=== PATIENT | female | born 1980 | race Caucasian/White ===

== ENCOUNTER → 2018-12-29 10:09 | Outpatient (CLI) | payer OTHER, SELFPAY ==
[2018-12-29 11:06] LABS: Appearance Urine UA CLEAR; Bilirubin Urine UA NEGATIVE (NEGATIVE); Color Urine UA YELLOW; Glucose Urine UA NEGATIVE (Negative); Ketones Urine UA NEGATIVE (NEGATIVE); Leukocyte Esterase Urine UA NEGATIVE (NEGATIVE); Nitrite Urine UA NEGATIVE (Negative); Occult Blood Urine UA TRACE-LYSED (Negative); Protein Urine UA NEGATIVE (Negative); Specific Gravity Urine UA 1.015 (1.000-1.035); Urobilinogen Urine UA 0.2 E.U./dL (0.2)
[2018-12-29 11:16] LABS: Hematocrit 37.8 % (36-46); Mean Corpuscular HGB Conc 34.4 % (30-36); Mean Corpuscular Hemoglobin 29.7 PG (26-34); Mean Corpuscular Volume 86.5 fL (80-100); Platelet Count 280 X10^3/uL (150-400); Red Blood Cell Count 4.37 X10^6/uL (4.0-5.2); Red Cell Distribution Width 13.7 % (11.6-14.8); White Blood Cell Count 8.1 X10^3/uL (4.5-11.0)
[2018-12-29 11:39] LABS: Alanine Aminotransferase 19 IU/L (9-52); Albumin 3.8 g/dL (3.5-5.0); Albumin Globulin Ratio 1.2 (1.0-2.8); Alkaline Phosphatase 76 U/L (38-126); Aspartate Aminotransferase 20 IU/L (14-36); BUN Creatinine Ratio 18.6 (6-22); Bilirubin Total 0.5 mg/dL (0.2-1.3); Blood Urea Nitrogen 13 mg/dL (7-17); Calcium 9.5 mg/dL (8.4-10.2); Carbon Dioxide 27 mmol/L (22-32); Chloride 102 mmol/L (98-107); Cholesterol 185 mg/dL (140-199); Estimated Glomerular Filt Rate > 60.0 mL/min (>60); Globulin 3.2 g/dL (1.7-4.1); Glucose 92 mg/dL (70-100); HDL Cholesterol 40 mg/dL (40-60); HEMOLYSIS < 15 (0-50); LDL Cholesterol Calculated 123 mg/dL (<100); Potassium 5.3 mmol/L (3.4-5.1); Sodium 137 mmol/L (137-145); Triglycerides 111 mg/dL (35-150)
[2018-12-29 11:55] LABS: Neutrophils Absolute Manual 4698 /uL (3000-5900); RBC Morphology Normal Morphology; Total Cells Counted 100
[2018-12-29 12:10] LABS: Thyroid Stimulating Hormone 2.06 uIU/mL (0.47-4.68)
== END ==
PROVIDERS: PCP Family Medicine; Visit Provider Family Medicine
DX: E66.9 Obesity, unspecified (principal); I10 Essential (primary) hypertension
CPT/HCPCS: 36415; 80053; 80061; 81003; 84443; 85025

== ENCOUNTER → 2019-01-21 10:38 | Outpatient (CLI) | payer OTHER, SELFPAY ==
--- NOTE | 2019-01-21 10:39 | DI.MG.S_ITS ---
BILATERAL DIGITAL SCREENING MAMMOGRAM 3D/2D WITH CAD: 01/21/2019 CLINICAL: Routine screening. Baseline exam. Family history of breast cancer. No prior exams were available for comparison. The tissue of both breasts is heterogeneously dense. This may lower the sensitivity of mammography. Current study was also evaluated with a Computer Aided Detection (CAD) system. There is a possible an irregular asymmetry with grouped coarse calcifications in the right breast posterior depth superior region seen on the mediolateral oblique view only. There is a 0.6 cm focal asymmetry with a circumscribed margin and grouped coarse calcifications in the left breast at 7 o'clock middle depth. No other significant masses or calcifications are seen in either breast. IMPRESSION: INCOMPLETE: NEEDS ADDITIONAL IMAGING EVALUATION The possible irregular asymmetry in the right breast posterior depth superior region seen on the mediolateral oblique view only is indeterminate. Spot magnification views as well as additional views with possible ultrasound are recommended. The 0.6 cm focal asymmetry in the left breast at 7 o'clock middle depth is indeterminate. Spot magnification views as well as additional views with possible ultrasound are recommended. This exam was interpreted at Station ID: [id number]. NOTE: For mammograms, a report in lay terms will be sent to the patient. Approximately 15% of breast malignancies will not be visualized mammographically. In the management of a palpable breast mass, a negative mammogram must not discourage biopsy of a clinically suspicious lesion. Electronically Signed By: Stephan carolina/silverio:01/23/2019 08:12:15 letter sent: Additional Imaging Needed ACR BI-RADS Category 0: Incomplete [id number]
[2019-01-21 13:25] LABS: Alanine Aminotransferase 32 IU/L (9-52); Albumin 3.9 g/dL (3.5-5.0); Albumin Globulin Ratio 1.3 (1.0-2.8); Alkaline Phosphatase 76 U/L (38-126); Aspartate Aminotransferase 21 IU/L (14-36); BUN Creatinine Ratio 18.6 (6-22); Bilirubin Total 0.6 mg/dL (0.2-1.3); Blood Urea Nitrogen 13 mg/dL (7-17); Carbon Dioxide 26 mmol/L (22-32); Chloride 103 mmol/L (98-107); Cholesterol 158 mg/dL (140-199); Estimated Glomerular Filt Rate > 60.0 mL/min (>60); Glucose 82 mg/dL (70-100); HDL Cholesterol 40 mg/dL (40-60); HEMOLYSIS < 15 (0-50); LDL Cholesterol Calculated 102 mg/dL (<100); Potassium 4.5 mmol/L (3.4-5.1); Sodium 139 mmol/L (137-145); Total Protein 6.9 g/dL (6.3-8.2); Triglycerides 82 mg/dL (35-150)
== END ==
PROVIDERS: PCP Family Medicine; Visit Provider Family Medicine
DX: Z12.31 Encounter for screening mammogram for malignant neoplasm of breast (principal); Z80.3 Family history of malignant neoplasm of breast; I10 Essential (primary) hypertension; E78.5 Hyperlipidemia, unspecified
CPT/HCPCS: 36415; 77063; 77067; 80053; 80061; 93005; 93010

== ENCOUNTER → 2019-02-08 15:12 | Outpatient (CLI) | payer OTHER, SELFPAY ==
--- NOTE | 2019-02-08 15:13 | DI.US.S_ITS ---
LIMITED ULTRASOUND OF RIGHT BREAST AND AXILLA: 02/08/2019 CLINICAL: Additional evaluation requested from prior study. Comparison is made to exams dated: 01/21/2019 mammogram and 02/08/2019 mammogram - [facility]. Color flow and real-time ultrasound of the right breast upper outer quadrant and axilla regions were performed. There are multiple right axillary lymph nodes demonstrating increased prominence and heterogenously increased echogenicity of the hilar fat, but with no significant cortical thickening. There is increased hilar vascularity of the nodes on ultrasound. IMPRESSION: SUSPICIOUS OF MALIGNANCY Multiple right axillary lymph nodes demonstrating prominent increased echogenicity of the hilar fat with increased hilar vascularity, but with no significant cortical thickening. Concurrent targeted ultrasound of the left axilla demonstrates similar findings, suggesting a possibly systemic lymphatic process. An ultrasound guided biopsy is recommended. Clinical correlation recommended as well. These results and recommendations were discussed with the patient at the time of the exam by the [facility] Radiologist Dr. Vinnie Worthy in person. This exam was interpreted at Station ID: [id number]. Electronically Signed By: Juanpablo Perez M.D. ecl/:02/08/2019 17:19:35 letter sent: Biopsy Required Ultrasound BI-RADS: 4a Low suspicion for malignancy
--- NOTE | 2019-02-08 15:13 | DI.US.S_ITS ---
LIMITED ULTRASOUND OF LEFT BREAST AND AXILLA: 02/08/2019 CLINICAL: Additional evaluation requested from prior study. Comparison is made to exams dated: 02/08/2019 mammogram, 01/21/2019 mammogram, and 02/08/2019 ultrasound - [facility]. Color flow and real-time ultrasound of the left breast lower inner quadrant and axilla regions were performed. Valdes scale images of the real-time examination were reviewed. There are multiple left axillary lymph nodes demonstrating increased prominence and heterogenously increased echogenicity of the hilar fat, but with no significant cortical thickening. There is increased hilar vascularity of the nodes on ultrasound. There is a 1.0 x 0.8 x 0.5 oval indistinct hypoechoic mass in the left breast 7:30 posiiton 6 cm from the nipple with internal calcifications and no vascularity on Doppler ultrasound. This correlates with mammography findings. IMPRESSION: SUSPICIOUS OF MALIGNANCY 1) 1.0 x 0.8 x 0.5 oval indistinct hypoechoic mass in the left breast 7:30 posiiton 6 cm from the nipple. An ultrasound guided biopsy is recommended. 2) Multiple left axillary lymph nodes demonstrating prominent increased echogenicity of the hilar fat with increased hilar vascularity, but with no significant cortical thickening. Concurrent targeted ultrasound of the right axilla demonstrates similar findings, suggesting a possibly systemic lymphatic process. An ultrasound guided biopsy of the right axillary lymph nodes has been recommended as the findings appear more significant in the right axilla; please see concurrent right axillary ultrasound report for further details. These results and recommendations were discussed with the patient at the time of the exam by the [facility] Radiologist Dr. Vinnie Worthy in person. This exam was interpreted at Station ID: [id number]. Electronically Signed By: Juanpablo Perez M.D. ecl/:02/08/2019 17:19:07 letter sent: Biopsy Required Ultrasound BI-RADS: 4a Low suspicion for malignancy
--- NOTE | 2019-02-08 15:13 | DI.MG.S_ITS ---
BILATERAL DIGITAL DIAGNOSTIC MAMMOGRAM 3D/2D: 02/08/2019 CLINICAL: Additional evaluation requested from prior study. Comparison is made to exam dated: 01/21/2019 [facility]. The tissue of both breasts is heterogeneously dense. This may lower the sensitivity of mammography. Previously identified irregular asymmetry with grouped coarse calcifications in the right breast posterior depth superior region seen on the mediolateral oblique view only on comparison mammogram of 01/21/19 persists on magnification views and localizes to the right axilla. These calcifications persist despite multiple attempts at cleaning the axilla by the patient and mammographic technologist. This may represent calcifications of the skin or within an axillary lymph node. There is an asymmetry in the superior right breast at middle depth seen only on RLM views which resolves with spot compression and tomosynthesis views, consistent with fibroglandular tissue. Previously identified 0.6 cm focal asymmetry with a circumscribed margin and grouped coarse calcifications in the left breast near 7 o'clock middle depth persists with additional views. IMPRESSION: INCOMPLETE: NEEDS ADDITIONAL IMAGING EVALUATION Previously identified irregular asymmetry with grouped coarse calcifications in the right breast posterior depth superior region seen on the mediolateral oblique view only on comparison mammogram of 01/21/19 persists on magnification views and localizes to the right axilla. This may represent calcifications within the skin or an axillary lymph node, possibly secondary to granulomatous disease. A targeted ultrasound is recommended for further evaluation. Previously identified 0.6 cm focal asymmetry with a circumscribed margin and grouped coarse calcifications in the left breast near 7 o'clock middle depth persists with additional views. A targeted ultrasound is recommended for further evaluation. This exam was interpreted at Station ID: [id number]. NOTE: For mammograms, a report in lay terms will be sent to the patient. Approximately 15% of breast malignancies will not be visualized mammographically. In the management of a palpable breast mass, a negative mammogram must not discourage biopsy of a clinically suspicious lesion. Electronically Signed By: Juanpablo Perez M.D. ecl/:02/08/2019 17:21:33 ACR BI-RADS Category 0: Incomplete [id number]
== END ==
PROVIDERS: PCP Family Medicine; Visit Provider Family Medicine
DX: R92.8 Other abnormal and inconclusive findings on diagnostic imaging of breast (principal); R92.1 Mammographic calcification found on diagnostic imaging of breast; R59.0 Localized enlarged lymph nodes; N63.24 Unspecified lump in the left breast, lower inner quadrant; N64.89 Other specified disorders of breast
CPT/HCPCS: 76642; 77066; G0279

== ENCOUNTER → 2019-02-21 13:03 | Outpatient (CLI) | payer OTHER, SELFPAY ==
--- NOTE | 2019-02-21 | DI.US.S_ITS ---
ULTRASOUND GUIDED BIOPSY RIGHT BREAST USING VACUUM DEVICE WITH POST ULTRASOUND IMAGIN02/21/2019 CLINICAL: Right axillary node biopsy. PATIENT CONSENT: Risks (minor bleeding, infection, vasovagal reaction and repeat procedure), benefits and alternatives were explained to the patient and written informed consent was obtained. Correlation is made to exams dated: 02/08/2019 ultrasound, 02/08/2019 mammogram, and 01/21/2019 mammogram - [facility]. An ultrasound guided biopsy using real-time ultrasound was performed for the lymph node located in the right axilla. This was described on the previous ultrasound report. The skin was prepped in the usual manner. Local anesthetic was administered to the access site. The abnormality was approached from the caudocranial aspect. An 18 gauge biopsy needle was placed adjacent to the abnormality under ultrasound guidance. Once the needle was documented to be in the correct location, three specimens were obtained using the Allih[employer] biopsy system. Post procedure ultrasound imaging demonstrates the clip at the targeted area. The specimens were sent to the laboratory for pathological analysis. IMPRESSION: ULTRASOUND GUIDED BIOPSY BENIGN Ultrasound guided biopsy of the lymph node in the right axilla was successful. Pathology demonstrates a benign lymph node and is concordant with ultrasound findings. Recommend return to screening mammography. This exam was interpreted at Station ID: [id number]. Rajat maldonado,teresa/:02/28/2019 17:09:01
--- NOTE | 2019-02-21 | DI.MG.S_ITS ---
UNILATERAL LEFT DIGITAL DIAGNOSTIC MAMMOGRAM POST-NEEDLE BIOPSY: 02/21/2019 CLINICAL: Left breast mass. Comparison is made to exams dated: 02/21/2019 ultrasound biopsy, 02/08/2019 ultrasound, 02/08/2019 mammogram, and 01/21/2019 mammogram - [facility]. The tissue of left breast is heterogeneously dense. This may lower the sensitivity of mammography. There is a bipsy clip in the left breast at the biopsy site. IMPRESSION: The bipsy clip is at the biopsy site. This exam was interpreted at Station ID: [id number]. NOTE: For mammograms, a report in lay terms will be sent to the patient. Approximately 15% of breast malignancies will not be visualized mammographically. In the management of a palpable breast mass, a negative mammogram must not discourage biopsy of a clinically suspicious lesion. Electronically Signed By: Rajat Shepherd M.D. fx/:02/23/2019 10:59:43 ACR BI-RADS Category n/a
--- NOTE | 2019-02-21 | PATH_ITS ---
[facility] Accession Number: [id number] . 01 Material submitted: . PART A: breast - LEFT BREAST PART B: lymph node - RIGHT AXILLARY LYMPH NODE . 01 Clinical history: . ABNORMAL MAMMOGRAM A: MASS 7:30 6 CM FN . 01 Diagnosis: A. Left Breast, Mass at 7:30 o'clock, 6 cm from Nipple, Biopsy: Breast parenchyma with fibrocystic change including cystic apocrine metaplasia and focal usual ductal hyperplasia. Rare calcium oxalate-type microcalcifications are present. Negative for atypia, carcinoma in situ, and invasive malignancy. . B. Right Axillary Lymph Node, Biopsy: Lymph node tissue, negative for malignancy. MRV 02/24/2019 1152 Local . 01 Electronically signed: . Meagan Santos MD, Pathologist NPI- [id number] . 01 Gross description: . Received two formalin-filled containers, both labeled with the patient's name: A. In a container labeled LT brst, sample is received, sample loose in container and consists of four yellow-brooks, cylindrical-shaped portions of tissue with an average diameter of 0.3 cm and range in length from 0.8 cm to 1.4 cm. The specimen is entirely submitted in cassette A. B. In a container labeled RT ax are two 0.2 cm in diameter, light denny, fragmenting, cylindrical-shaped portions of tissue that range in length from 1.2 cm to 1.8 cm. The specimen is entirely submitted in cassette B. Collection date: 02/21/2019. Collection time: Part A - 1:50 p.m.; Part B - 2:15 p.m. Total fixation time: Approximately 8 hours. (DC:[id number]) /PETTY 02/24/2019 1152 Local . 01 Microscopic: . Deeper levels are examined on blocks A and B. A. Rare calcium oxalate crystals, seen with polarized microscopy, are associated with benign apocrine cysts. B. Pigment laden macrophages consistent with tatoo is present within the lymph node tissue. . 01 Pathologist provided ICD-10: N63.0 . 01 CPT . 025568, 113682 [facility]formed at: [facility] [address], [place], [place] [id number] MD Jules Pedroza MD Phone: [phone]
--- NOTE | 2019-02-21 13:04 | DI.US.S_ITS ---
ULTRASOUND GUIDED BIOPSY LEFT BREAST USING VACUUM DEVICE WITH POST MAMMOGRAPHIC AND ULTRASOUND IMAGIN02/21/2019 CLINICAL: Left breast mass. PATIENT CONSENT: Risks (minor bleeding, infection, vasovagal reaction and repeat procedure), benefits and alternatives were explained to the patient and written informed consent was obtained. Correlation is made to exams dated: 02/08/2019 ultrasound, 02/08/2019 mammogram, and 01/21/2019 mammogram - [facility]. An ultrasound guided biopsy using real-time ultrasound was performed for the oval mass located in the left breast at 7:30 o'clock posterior depth. This was described on the previous ultrasound report. The skin was prepped in the usual manner. Local anesthetic was administered to the access site. The abnormality was approached from the medial aspect. A 13 gauge biopsy needle was placed adjacent to the abnormality under ultrasound guidance. Once the needle was documented to be in the correct location, five specimens were obtained using the Mammotome biopsy system. Post procedure mammographic and ultrasound imaging demonstrates the clip at the targeted area. The specimens were sent to the laboratory for pathological analysis. IMPRESSION: ULTRASOUND GUIDED BIOPSY BENIGN Ultrasound guided biopsy of the mass in the left breast posterior depth was successful. Pathology indicates fibrocystic changes, concordant with mammography and ultrasound findings. Return to screening mammography is recommended. This exam was interpreted at Station ID: [id number]. teresa Peñaloza M.D., M.D./:02/28/2019 17:07:33
== END ==
PROVIDERS: PCP Family Medicine; Visit Provider Family Medicine
DX: N60.82 Other benign mammary dysplasias of left breast (principal); N60.12 Diffuse cystic mastopathy of left breast
CPT/HCPCS: 19083; 38505; 76942; 77065

== ENCOUNTER → 2019-11-28 17:08 | Outpatient (CLI) | payer OTHER, SELFPAY ==
--- NOTE | 2019-11-28 17:16 | DI.RAD.S_ITS ---
PROCEDURE: XR KNEE RT 3V INDICATIONS: right ankle pain TECHNIQUE: 3 views of the knee were acquired. COMPARISON: None. FINDINGS: Bones: No fractures or dislocations. There is evidence of prior fracture fixation at the tibial plateau with a lateral fixation plate and transverse cancellous screws, showing no evidence of device loosening or disruption. No suspicious bony lesions. Moderate osteoarthritis at all 3 compartments Soft tissues: No joint effusion. No suspicious soft tissue calcifications. IMPRESSION: Prior tibial plateau fracture fixation, moderate osteoarthritis at the 3 compartments of the right knee. Dictated by: Tino Mcadams M.D. on 11/29/2019 at 10:07 Approved by: Tino Mcadams M.D. on 11/29/2019 at 10:09
--- NOTE | 2019-11-28 17:16 | DI.RAD.S_ITS ---
PROCEDURE: XR ANKLE RT MIN 3V INDICATIONS: right ankle pain TECHNIQUE: 3 views of the ankle were acquired. COMPARISON: None. FINDINGS: Bones: No fractures or dislocations. Ankle mortise is normally aligned. No suspicious bony lesions. Prior fracture fixation at the lateral aspect of the distal fibia and also at the medial malleolus Soft tissues: No tibiotalar joint effusion. Achilles tendon appears normal. IMPRESSION: . Prior fracture fixation, no sign of device loosening or disruption, no new trauma found. Dictated by: Tino Mcadams M.D. on 11/29/2019 at 10:06 Approved by: Tino Mcadams M.D. on 11/29/2019 at 10:07
== END ==
PROVIDERS: PCP Registered Nurse; Referring Provider Registered Nurse; Visit Provider Registered Nurse
DX: M25.561 Pain in right knee (principal); M25.571 Pain in right ankle and joints of right foot; M17.11 Unilateral primary osteoarthritis, right knee
CPT/HCPCS: 73562; 73610

== ENCOUNTER → 2020-03-25 14:46 | Outpatient (CLI) | payer OTHER, SELFPAY ==
--- NOTE | 2020-03-25 14:48 | DI.RAD.S_ITS ---
PROCEDURE: XR CHEST 2V INDICATIONS: cough TECHNIQUE: 2 views of the chest were acquired. COMPARISON: None. FINDINGS: Surgical changes and devices: None. Lungs and pleura: Lungs are clear. No pleural effusions or pneumothorax. Mediastinum: Mediastinal contours are normal. Heart size is normal. Bones and chest wall: No suspicious bony abnormalities. Soft tissues appear unremarkable. IMPRESSION: Clear lungs, without focal infiltrates. If there is clinical concern for a developing pulmonary process, a short-term followup chest series (with PA and lateral views, performed in deep inspiration) is suggested for further evaluation. Dictated by: Kip De La Cruz M.D. on 03/25/2020 at 15:05 Approved by: Kip De La Cruz M.D. on 03/25/2020 at 15:05
[2020-03-25 15:05] LABS: Add Manual Diff / Slide Review NO; Basophils Absolute Auto 0 /uL (0-100); Basophils Percent Auto 0.5 % (0-2); Eosinophils Absolute Auto 100 /uL (0-450); Eosinophils Percent Auto 1.1 % (2-4); Hemoglobin 12.3 g/dL (12.0-16.0); Lymphocytes Absolute Auto 2800 /uL (1100-4500); Lymphocytes Percent Auto 33.3 % (25-40); Mean Corpuscular HGB Conc 33.2 % (30-36); Mean Corpuscular Hemoglobin 29.2 PG (26-34); Mean Corpuscular Volume 88.2 fL (80-100); Monocytes Absolute Auto 600 /uL (0-900); Monocytes Percent Auto 7.2 % (3-14); Neutrophils Absolute Auto 4800 /uL (1500-7000); Neutrophils Percent Auto 57.9 % (50-75); Platelet Count 288 X10^3/uL (150-400); Red Cell Distribution Width 13.5 % (11.6-14.8); White Blood Cell Count 8.3 X10^3/uL (4.5-11.0)
[2020-03-25 15:24] LABS: Alanine Aminotransferase 20 IU/L (<35); Albumin 3.8 g/dL (3.5-5.0); Albumin Globulin Ratio 1.1 (1.0-2.8); Alkaline Phosphatase 76 U/L (38-126); Aspartate Aminotransferase 18 IU/L (14-36); BUN Creatinine Ratio 22.7 (6-22); Bilirubin Total 0.3 mg/dL (0.2-1.3); Blood Urea Nitrogen 15 mg/dL (7-17); Calcium 8.9 mg/dL (8.4-10.2); Carbon Dioxide 27 mmol/L (22-32); Chloride 106 mmol/L (98-107); Estimated Glomerular Filt Rate > 60.0 mL/min (>60); Globulin 3.4 g/dL (1.7-4.1); Glucose 107 mg/dL (70-100); HEMOLYSIS < 15 (0-50); Potassium 4.1 mmol/L (3.4-5.1); Sodium 137 mmol/L (137-145); Total Protein 7.2 g/dL (6.3-8.2)
== END ==
PROVIDERS: PCP Registered Nurse; Referring Provider Registered Nurse; Visit Provider Registered Nurse
DX: J98.8 Other specified respiratory disorders (principal); R05 Cough
CPT/HCPCS: 36415; 71046; 80053; 85025

== ENCOUNTER → 2020-05-10 13:54 | Outpatient (CLI) | payer OTHER, SELFPAY ==
[2020-05-10 16:24] LABS: Add Manual Diff / Slide Review NO; Basophils Absolute Auto 0 /uL (0-100); Basophils Percent Auto 0.2 % (0-2); Eosinophils Absolute Auto 100 /uL (0-450); Hematocrit 39.2 % (36-46); Hemoglobin 12.8 g/dL (12.0-16.0); Lymphocytes Absolute Auto 2700 /uL (1100-4500); Lymphocytes Percent Auto 32.4 % (25-40); Mean Corpuscular HGB Conc 32.6 % (30-36); Mean Corpuscular Hemoglobin 28.9 PG (26-34); Mean Corpuscular Volume 88.7 fL (80-100); Monocytes Absolute Auto 500 /uL (0-900); Monocytes Percent Auto 6.3 % (3-14); Neutrophils Absolute Auto 4900 /uL (1500-7000); Neutrophils Percent Auto 60.1 % (50-75); Platelet Count 279 X10^3/uL (150-400); Red Blood Cell Count 4.42 X10^6/uL (4.0-5.2); Red Cell Distribution Width 13.2 % (11.6-14.8); White Blood Cell Count 8.2 X10^3/uL (4.5-11.0)
[2020-05-10 16:39] LABS: Alanine Aminotransferase 29 IU/L (<35); Albumin 4.2 g/dL (3.5-5.0); Albumin Globulin Ratio 1.4 (1.0-2.8); Alkaline Phosphatase 71 U/L (38-126); Aspartate Aminotransferase 23 IU/L (14-36); BUN Creatinine Ratio 18.2 (6-22); Bilirubin Total 0.2 mg/dL (0.2-1.3); Blood Urea Nitrogen 14 mg/dL (7-17); C-Reactive Protein Quant 1.4 mg/dL (<1.0); Calcium 9.3 mg/dL (8.4-10.2); Carbon Dioxide 28 mmol/L (22-32); Chloride 102 mmol/L (98-107); Estimated Glomerular Filt Rate > 60.0 mL/min (>60); Globulin 3.1 g/dL (1.7-4.1); Glucose 94 mg/dL (70-100); HEMOLYSIS < 15 (0-50); Potassium 4.2 mmol/L (3.4-5.1); Sodium 136 mmol/L (137-145); Total Protein 7.3 g/dL (6.3-8.2)
[2020-05-10 16:45] LABS: Erythrocyte Sedimentation Rate 18 MM/HR (0-20)
== END ==
PROVIDERS: PCP Registered Nurse; Referring Provider Registered Nurse; Visit Provider Registered Nurse
DX: M62.838 Other muscle spasm (principal)
CPT/HCPCS: 36415; 80053; 83735; 85025; 85651; 86140

== ENCOUNTER → 2020-08-14 12:08 | Outpatient (CLI) | payer OTHER, SELFPAY ==
--- NOTE | 2020-08-14 12:09 | DI.US.S_ITS ---
PROCEDURE: US PERIPH VENOUS LOW EXTREM RT INDICATIONS: PAIN TECHNIQUE: Real-time imaging, as well as color and pulse Doppler interrogation, were performed of the lower extremity deep veins from the inguinal ligament to the popliteal fossa. COMPARISON: None. FINDINGS: The common femoral, femoral and popliteal veins are normally compressible, and free of intraluminal thrombus. Color and pulse Doppler demonstrate normal phasic intraluminal flow. There is normal augmentation response to distal compression maneuver. This study is limited by body habitus. IMPRESSION: Negative for deep venous thrombosis. Dictated by: Kip De La Cruz M.D. on 08/14/2020 at 11:57 Approved by: Kip De La Cruz M.D. on 08/14/2020 at 11:57
== END ==
PROVIDERS: PCP Registered Nurse; Referring Provider Registered Nurse; Visit Provider Registered Nurse
DX: M79.604 Pain in right leg (principal)
CPT/HCPCS: 93971

== ENCOUNTER → 2021-06-10 09:53 | Outpatient (CLI) | payer OTHER, SELFPAY ==
--- NOTE | 2021-06-10 10:18 | DI.RAD.S_ITS ---
PROCEDURE: XR CHEST 2V INDICATIONS: eval persistent cough/SOB, pls R/O pneumonia TECHNIQUE: 2 views of the chest were acquired. COMPARISON: [facility], CR, XR CHEST 2V, 03/25/2020, 15:01. FINDINGS: Surgical changes and devices: None. Lungs and pleura: Lungs are clear. No pleural effusions or pneumothorax. Mediastinum: Mediastinal contours are normal. Heart size is normal. Bones and chest wall: No suspicious bony abnormalities. Soft tissues appear unremarkable. IMPRESSION: No acute cardiopulmonary process demonstrated radiographically. Dictated by: Randall Kaplan M.D. on 06/10/2021 at 10:42 Approved by: Randall Kaplan M.D. on 06/10/2021 at 10:46
[2021-06-10 11:01] LABS: Influenza A - CEPHEID Flu A NEGATIVE (NEGATIVE); Influenza B - CEPHEID Flu B NEGATIVE (NEGATIVE)
[2021-06-10 11:07] LABS: COVID-19 CEPHEID PCR (VTM/NP) Negative (Negative)
== END ==
PROVIDERS: PCP Registered Nurse; Referring Provider Registered Nurse Diabetes Educator; Visit Provider Registered Nurse Diabetes Educator
DX: R05.9 Cough, unspecified (principal); Z20.822 Contact with and (suspected) exposure to COVID-19
CPT/HCPCS: 0240U; 71046

== ENCOUNTER → 2021-07-03 10:31 | Outpatient (CLI) | payer OTHER, SELFPAY ==
--- NOTE | 2021-07-03 10:32 | DI.RAD.S_ITS ---
PROCEDURE: XR CHEST 2V INDICATIONS: Shortness of breath, cough TECHNIQUE: 2 views of the chest were acquired. COMPARISON: [facility], CR, XR CHEST 2V, 06/10/2021, 10:08. FINDINGS: Surgical changes and devices: None. Lungs and pleura: Lungs are clear. No pleural effusions or pneumothorax. Mediastinum: Mediastinal contours are normal. Heart size is normal. Bones and chest wall: No suspicious bony abnormalities. Soft tissues appear unremarkable. IMPRESSION: No acute cardiopulmonary process demonstrated radiographically. Dictated by: Randall Kaplan M.D. on 07/03/2021 at 11:09 Approved by: Randall Kaplan M.D. on 07/03/2021 at 11:09
== END ==
PROVIDERS: PCP Registered Nurse; Referring Provider Registered Nurse; Visit Provider Registered Nurse
DX: J98.8 Other specified respiratory disorders (principal); R05.9 Cough, unspecified
CPT/HCPCS: 71046

== ENCOUNTER → 2021-07-09 15:23 | Outpatient (CLI) | payer OTHER, SELFPAY ==
--- NOTE | 2021-07-22 08:00 | PM.CARDMON.1 ---
[employer] Machine Operator Report Referral & Results Date Patient Seen: 07/09/21 Requesting provider: Nano Shelby Indication: Palpitations Duration of monitoring (days): 5 Diary information: There was 1 patient diary entry there was associated with sinus rhythm and simple PVCs Data: Minimum heart rate identified was 45 beats per minute at 01:27 on 07/13/2021 Maximum sinus heart rate was 143 beats per minute at 11:23 on 07/14/2021 Maximum overall heart rate was 182 beats per minute at 01:20 on 07/12/2021 during a 6 beat run of SVT Less than 1% of identified beats were supraventricular ectopic in origin Approximately 9% of identified beats were ventricular ectopic in origin which would classify them as frequent, this included a 8 minute 43 second run of ventricular bigeminy and a 57.7 second run of ventricular trigeminy which were respectively the longest runs There were 6 runs of SVT the longest lasting 9.8 seconds at a rate of 131 beats per minute the fastest being the 6 beat run above Impression: 5 day pilot can router demonstrating frequent PVCs as a very possible source of patient's reported symptoms of palpitations. No serious dysrhythmias identified on this study beyond the PVCs Clinical correlation suggested
== END ==
PROVIDERS: PCP Registered Nurse; Referring Provider Family Medicine; Visit Provider Family Medicine
DX: R00.2 Palpitations (principal)
CPT/HCPCS: 93242; 93244

== ENCOUNTER → 2021-07-18 14:26 | Outpatient (CLI) | payer OTHER, SELFPAY ==
--- NOTE | 2021-07-18 14:26 | DI.CT.S_ITS ---
PROCEDURE: CT ABDOMEN PELVIS W CON INDICATIONS: abdominal pain TECHNIQUE: After the administration of oral and IV contrast, axial sections were acquired from the lung bases to the pubic symphysis. Coronal and sagittal reformats were performed. For radiation dose reduction, the following was used: automated exposure control, adjustment of mA and/or kV according to patient size. COMPARISON: None. FINDINGS: Image quality: Excellent. Lung bases: Unremarkable. Heart: No significant findings. ABDOMEN: Liver: Hepatomegaly and mild hepatic steatosis. Gallbladder: Surgically absent. Biliary ducts: Mild extrahepatic biliary dilatation, appropriate caliber post cholecystectomy. Pancreas: Normal. Spleen: Normal size. Adrenal Glands: Unremarkable. Kidneys and Ureters: Symmetric renal enhancement. No hydronephrosis or hydroureter. No perinephric inflammation. Stomach and Bowel: Stomach and small bowel are normal. A normal appendix is seen. There is mild diverticulosis of the descending colon and thickening of the left lower quadrant descending/sigmoid colon region. No maritza pericolonic inflammation or extraluminal gas. Peritoneum: No abnormal intraperitoneal fluid. No free air. Ventral Wall: Tiny fat containing umbilical hernia. Abdominal Nodes: No retroperitoneal or mesenteric adenopathy by size criteria. Vessels: Aorta and inferior vena cava are normal in size. PELVIS: Pelvic Organs: The uterus is anteverted. Normal ovarian tissue. Bladder: Normal. Pelvic Nodes: No enlarged lymph nodes. Miscellaneous: Tiny fat containing bilateral inguinal hernias. Bones: Unremarkable. IMPRESSION: 1. Diverticulosis of the descending and sigmoid colon with mild wall thickening of the colon in the left lower quadrant but no martiza inflammatory change. This may indicate chronic diverticulitis without active diverticulitis. 2. Hepatomegaly and mild hepatic steatosis. Dictated by: Ciara Prieto M.D. on 07/18/2021 at 16:47 Approved by: Ciara Prieto M.D. on 07/18/2021 at 16:51
== END ==
PROVIDERS: PCP Registered Nurse; Referring Provider Registered Nurse; Visit Provider Registered Nurse
DX: K57.30 Diverticulosis of large intestine without perforation or abscess without bleeding (principal); K76.0 Fatty (change of) liver, not elsewhere classified; R10.9 Unspecified abdominal pain
CPT/HCPCS: 74177; Q9967

== ENCOUNTER → 2021-08-13 16:06 | Outpatient (CLI) | payer OTHER, SELFPAY ==
--- NOTE | 2021-08-13 16:10 | DI.ECHO.S_ITS ---
[facility] +---------+ : : [address] : : : : [id number] : : : : Phone: [phone]+ Echocardiogram Report + + :Name: ASHLEY GARCIA Study Date: 08/13/2021 Height: 67 in : :[facility] ReadingLocation: Weight: 355 lb : : Gender: Female BSA: 2.6 m2 : :: 1980 Age: 40 yrs BP: 122/76 mmHg: :Reason For Study: BRADYCARDIA, FATIGUE, ABNORMAL EKG : :Ordering Physician: JENA FAJARDO, : :HUMBERTO Performed By: Latoya Jang : :Referring: HUMBERTO SCHAEFER : + + Interpretation Summary The ejection fraction is estimated to be 60-65%. Diastolic parameters suggest probable normal left ventricular diastolic function and normal filling pressures. The right ventricle is normal in size and function. No significant valvular disease. Procedure: A two-dimensional transthoracic echocardiogram with color flow and Doppler was performed. The study quality was technically adequate. There is no prior echocardiogram noted for this patient. The patient had frequent PVCs during the exam. The patient was in sinus rhythm with heart rates between 55-75 bpm during the exam. Left Ventricle: The left ventricle is normal in size and wall thickness. The ejection fraction is estimated to be 60-65%. There are no obvious focal wall motion abnormalities noted but poor endocardial definition reduces the sensitivity for the detection of such. Diastolic parameters suggest probable normal left ventricular diastolic function and normal filling pressures. Right Ventricle: The right ventricle is normal in size and function. Atria: The left atrial size is normal. Right atrial size is normal. There is no Doppler evidence for an interatrial shunt. Mitral Valve: The mitral valve is normal in structure and function. There is no mitral regurgitation noted. Aortic Valve: The aortic valve is trileaflet. The aortic valve opens well. There is no aortic valve stenosis. No aortic regurgitation is present. Tricuspid Valve: The tricuspid valve is normal in structure and function. There is a trace or physiologic amount of tricuspid regurgitation. Pulmonic Valve: The pulmonic valve leaflets are thin and pliable; valve motion is normal. There is no pulmonic valvular regurgitation. Great Vessels: The aortic root is normal size. The dimensions of the ascending aorta are normal. The IVC is of normal diameter and collapses greater than 50% with a sniff. This suggests a low right atrial pressure of 3 mm Hg. Pericardium/ Pleura There is no pericardial effusion. There is no pleural effusion. MMode/2D Measurements & Calculations LVIDd: 5.3 cm LVOT diam: 2.3 cm LVIDs: 3.3 cm Ao root diam: 3.6 cm FS: 37.3 % asc Aorta Diam: 3.6 cm IVSd: 1.0 cm Ao Arch Diam (Prox Trans): 3.3 cm LVPWd: 0.99 cm LV psears. diameter/BSA (cm/m^2): 2.0 LV sys. diameter/BSA (cm/m^2): 1.3 LA A2 area: 20.3 cm2 RA long axis: 5.3 cm LA A4 area: 18.9 cm2 RA area: 15.6 cm2 LA length (vol): 5.6 cm RA vol: 38.7 ml LA vol: 58.4 ml RA : 15.0 ml/m2 LA vol index: 22.6 ml/m2 IVC diam: 1.4 cm RVD1 (basal): 3.8 cm RVD2 (mid): 3.7 cm TAPSE: 2.0 cm Doppler Measurements & Calculations Ao V2 max: 150.6 cm/sec LVOT Max Paulo: 103.5 cm/sec Ao V2 mean: 111.9 cm/sec LV V1 max P.3 mmHg Ao max P.1 mmHg LV V1 VTI: 19.6 cm Ao mean P.5 mmHg CRISTINA(I,D): 2.6 cm2 Ao V2 VTI: 31.9 cm CRISTINA(V,D): 3.0 cm2 sev ratio: 0.61 CRISTINA indexed to BSA (cm^2/m^2): 1.0 MV E max paulo: 74.6 cm/sec PA V2 max: 103.3 cm/sec MV A max paulo: 58.7 cm/sec PA V2 mean: 64.3 cm/sec MV E/A: 1.3 PA mean P.0 mmHg Med Peak E' Paulo: 9.1 cm/sec PA pr(Accel): 34.5 mmHg E/E' med: 8.2 Lat Peak E' Paulo: 13.6 cm/sec E/E' lat: 5.5 E/e' average: 6.8 MV dec time: 0.25 sec SV(LVOT): 84.2 ml Reading Physician:PM
== END ==
PROVIDERS: PCP Registered Nurse; Referring Provider Registered Nurse; Visit Provider Registered Nurse
DX: R94.31 Abnormal electrocardiogram [ECG] [EKG] (principal); R00.1 Bradycardia, unspecified; R53.83 Other fatigue
CPT/HCPCS: 93306

== ENCOUNTER → 2021-10-09 09:14 | Outpatient (CLI) | payer OTHER, SELFPAY ==
[2021-10-09 09:46] LABS: Hematocrit 37.9 % (36-46); Hemoglobin 13.1 g/dL (12.0-16.0); Mean Corpuscular HGB Conc 34.5 % (30-36); Mean Corpuscular Hemoglobin 29.6 PG (26-34); Mean Corpuscular Volume 85.6 fL (80-100); Platelet Count 249 X10^3/uL (150-400); Red Blood Cell Count 4.42 X10^6/uL (4.0-5.2); Red Cell Distribution Width 13.4 % (11.6-14.8); White Blood Cell Count 9.4 X10^3/uL (4.5-11.0)
[2021-10-09 09:58] LABS: HEMOLYSIS < 15 (0-50); Iron 85 ug/dL (37-170)
[2021-10-09 10:03] LABS: Alanine Aminotransferase 16 IU/L (<35); Albumin Globulin Ratio 1.3 (1.0-2.8); Alkaline Phosphatase 73 U/L (38-126); Aspartate Aminotransferase 16 IU/L (14-36); BUN Creatinine Ratio 17.7 (6-22); Bilirubin Total 0.6 mg/dL (0.2-1.3); Blood Urea Nitrogen 14 mg/dL (7-17); Calcium 9.1 mg/dL (8.4-10.2); Carbon Dioxide 26 mmol/L (22-32); Chloride 104 mmol/L (98-107); Cholesterol 157 mg/dL (140-199); Estimated Glomerular Filt Rate > 60 mL/min (>60); Globulin 3.1 g/dL (1.7-4.1); Glucose 100 mg/dL (70-100); HDL Cholesterol 37 mg/dL (40-60); HEMOLYSIS < 15 (0-50); LDL Cholesterol Calculated 101 mg/dL (<100); Magnesium 1.9 mg/dL (1.6-2.3); Potassium 4.8 mmol/L (3.4-5.1); Sodium 139 mmol/L (137-145); Total Protein 7.1 g/dL (6.3-8.2); Triglycerides 95 mg/dL (35-150)
[2021-10-09 10:10] LABS: Percent Iron Saturation 25 % (15-50); Total Iron Binding Capacity 336 ug/dL (265-497); Transferrin 260 mg/dL (206-381)
[2021-10-09 10:30] LABS: TSH w/ Reflex to FT4 2.31 uIU/mL (0.47-4.68)
[2021-10-09 10:34] LABS: Ferritin 26 ng/mL (6-137)
[2021-10-09 19:05] LABS: Hep C Virus Ab w/Reflex Quant NEGATIVE s/c (NEGATIVE); Hepatitis B Surface Antigen NEGATIVE s/c (NEGATIVE)
[2021-10-10 06:22] LABS: Hepatitis B Core AB w/Reflex Negative (Negative)
== END ==
PROVIDERS: PCP Registered Nurse Diabetes Educator; Referring Provider Registered Nurse Diabetes Educator; Visit Provider Registered Nurse Diabetes Educator
DX: E78.5 Hyperlipidemia, unspecified (principal); I10 Essential (primary) hypertension; K76.0 Fatty (change of) liver, not elsewhere classified; R25.2 Cramp and spasm
CPT/HCPCS: 36415; 80053; 80061; 82728; 83540; 83550; 83735; 84443; 85027; 86704; 86803; 87340

== ENCOUNTER → 2021-10-24 14:39 | Outpatient (CLI) | payer OTHER, SELFPAY ==
--- NOTE | 2021-10-24 14:40 | DI.RAD.S_ITS ---
PROCEDURE: XR LUMBAR SPINE MIN 4V INDICATIONS: eval lbp and bilateral hip pain TECHNIQUE: 5 views of the lumbar spine acquired, including flexion and extension views. COMPARISON: None. FINDINGS: Bones: 5 nonrib-bearing vertebrae are present. Facet arthrosis in the lower lumbar spine. 2 mm anterolisthesis of L4-5. No vertebral body compression fractures. No suspicious bony lesions. Oblique views demonstrate no pars interarticularis defects. Soft tissues: Overlying bowel gas pattern is normal. No suspicious soft tissue calcifications. IMPRESSION: Degenerative changes and facet arthrosis in the lower lumbar spine. Dictated by: Cesar Daniel [facility] Interpreted: Donal Murphy MD on 10/24/2021 at 15:35 Transcribed by: RADHA on 10/24/2021 at 15:36 Approved by: Eduard Murphy M.D. on 11/04/2021 at 8:07
--- NOTE | 2021-10-24 14:40 | DI.RAD.S_ITS ---
PROCEDURE: XR HIP W PEL IF DONE FAZAL MIN 4V INDICATIONS: eval lbp and bilateral hip pain TECHNIQUE: AP pelvis with lateral view(s) of both hip(s). COMPARISON: None. FINDINGS: Bones: No fractures or dislocations. Pelvic ring appears intact. No suspicious bony lesions. Soft tissues: The visualized bowel gas pattern is normal. No suspicious soft tissue calcifications. IMPRESSION: 1. No acute fracture visualized. 2. No substantial degenerative changes of the hips identified. Dictated by: Indra Toth M.D. on 10/24/2021 at 17:52 Approved by: Indra Toth M.D. on 10/24/2021 at 17:55
== END ==
PROVIDERS: PCP Registered Nurse Diabetes Educator; Referring Provider Registered Nurse Diabetes Educator; Visit Provider Registered Nurse Diabetes Educator
DX: M47.816 Spondylosis without myelopathy or radiculopathy, lumbar region (principal); M25.551 Pain in right hip; M25.552 Pain in left hip; M54.50 Low back pain, unspecified
CPT/HCPCS: 72110; 73522

== ENCOUNTER → 2021-10-30 16:44 | Outpatient (CLI) | payer OTHER, SELFPAY ==
--- NOTE | 2021-10-30 | DI.MG.S_ITS ---
BILATERAL DIGITAL SCREENING MAMMOGRAM 3D/2D WITH CAD: 10/30/2021 CLINICAL: Routine screening. Comparison is made to exams dated: 02/21/2019 mammogram, 02/08/2019 mammogram, and 01/21/2019 mammogram - [facility]. There are scattered fibroglandular elements in both breasts. Current study was also evaluated with a Computer Aided Detection (CAD) system. There is a biopsy clip in both breasts. No significant masses, calcifications, or other findings are seen in either breast. There has been no significant interval change. IMPRESSION: NEGATIVE There is no mammographic evidence of malignancy. A 1 year screening mammogram is recommended. Based on the Tyrer Cuzick model (a risk assessment model) the patient's lifetime risk is 9.5% and her 10 year risk is 1.4%. According to the ACR, ACS, and NCCN guidelines, an annual breast MRI exam along with mammogram is recommended if the patient's lifetime risk is 20% or greater. This exam was interpreted at Station ID: [id number]. NOTE: For mammograms, a report in lay terms will be sent to the patient. Approximately 15% of breast malignancies will not be visualized mammographically. In the management of a palpable breast mass, a negative mammogram must not discourage biopsy of a clinically suspicious lesion. Electronically Signed By: Vinnie gates/silverio:10/31/2021 08:08:05 letter sent: Normal Exam ACR BI-RADS Category 1: Negative [id number]
== END ==
PROVIDERS: PCP Registered Nurse Diabetes Educator; Referring Provider Registered Nurse Diabetes Educator; Visit Provider Registered Nurse Diabetes Educator
DX: Z12.31 Encounter for screening mammogram for malignant neoplasm of breast (principal)
CPT/HCPCS: 77063; 77067

== ENCOUNTER → 2021-12-25 13:19 | Outpatient (CLI) | payer OTHER, SELFPAY ==
--- NOTE | 2021-12-25 13:22 | DI.RAD.S_ITS ---
PROCEDURE: XR KNEE LT 3V INDICATIONS: eval/treat bilateral chronic knee pain, hx OA TECHNIQUE: 3 views of the knee were acquired. COMPARISON: [facility], RONALDO, XR KNEE RT 3V, 11/28/2019, 16:17. FINDINGS: Bones: Moderate-severe degenerative changes of the left knee involving all 3 compartments. There is moderate joint space narrowing of the medial femorotibial compartment. Prominent marginal osteophytes are noted medially. No acute fracture or dislocation. No suspicious osseous lesions. Soft tissues: Small-moderate sized joint effusion. No suspicious soft tissue calcifications. IMPRESSION: Left knee without acute fracture or dislocation. Moderate-severe tricompartmental left knee osteoarthrosis most severe in the medial femorotibial compartment. Dictated by: Stephan Mauricio M.D. on 12/25/2021 at 17:29 Approved by: Stephan Mauricio M.D. on 12/25/2021 at 17:30
--- NOTE | 2021-12-25 13:22 | DI.RAD.S_ITS ---
PROCEDURE: XR KNEE RT 3V INDICATIONS: eval/treat bilateral chronic knee pain, hx OA TECHNIQUE: 3 views of the knee were acquired. COMPARISON: [facility], , XR KNEE RT 3V, 11/28/2019, 16:17. FINDINGS: Bones: No fractures or dislocations. No suspicious bony lesions. Moderate-severe tricompartmental degenerative changes of the right knee. There is mild joint space narrowing involving the medial and lateral femorotibial compartments. Prominent marginal osteophytes most pronounced in the patellofemoral compartment. There are changes involving the proximal tibia from surgical hardware removal. Soft tissues: Moderate-sized joint effusion. No suspicious soft tissue calcifications. IMPRESSION: Right knee without acute fracture or dislocation. Moderate-severe tricompartmental right knee osteoarthrosis with moderate-sized joint effusion. Dictated by: Stephan Mauricio M.D. on 12/25/2021 at 17:30 Approved by: Stephan Mauricio M.D. on 12/25/2021 at 17:32
== END ==
PROVIDERS: PCP Registered Nurse Diabetes Educator; Referring Provider Registered Nurse Diabetes Educator; Visit Provider Registered Nurse Diabetes Educator
DX: M17.0 Bilateral primary osteoarthritis of knee (principal); M25.462 Effusion, left knee; M25.461 Effusion, right knee
CPT/HCPCS: 73562

== ENCOUNTER → 2022-05-28 10:38 | Outpatient (CLI) | payer OTHER, SELFPAY ==
[2022-05-28 11:36] LABS: Add Manual Diff / Slide Review NO; Basophils Absolute Auto 0 /uL (0-100); Basophils Percent Auto 0.4 % (0-2); Eosinophils Absolute Auto 100 /uL (0-450); Eosinophils Percent Auto 1.3 % (2-4); Hematocrit 40.1 % (36-46); Hemoglobin 13.6 g/dL (12.0-16.0); Lymphocytes Absolute Auto 2700 /uL (1100-4500); Lymphocytes Percent Auto 30.1 % (25-40); Mean Corpuscular HGB Conc 33.8 % (30-36); Mean Corpuscular Hemoglobin 29.1 PG (26-34); Mean Corpuscular Volume 85.9 fL (80-100); Monocytes Absolute Auto 700 /uL (0-900); Monocytes Percent Auto 7.5 % (3-14); Neutrophils Absolute Auto 5400 /uL (1500-7000); Neutrophils Percent Auto 60.7 % (50-75); Platelet Count 278 X10^3/uL (150-400); Red Blood Cell Count 4.67 X10^6/uL (4.0-5.2); Red Cell Distribution Width 13.6 % (11.6-14.8); White Blood Cell Count 8.9 X10^3/uL (4.5-11.0)
[2022-05-28 11:57] LABS: Alanine Aminotransferase 19 IU/L (<35); Albumin Globulin Ratio 1.3 (1.0-2.8); Alkaline Phosphatase 86 U/L (38-126); Aspartate Aminotransferase 17 IU/L (14-36); Bilirubin Total 0.5 mg/dL (0.2-1.3); Blood Urea Nitrogen 15 mg/dL (7-17); Calcium 9.1 mg/dL (8.4-10.2); Carbon Dioxide 26 mmol/L (22-32); Chloride 103 mmol/L (98-107); Estimated Glomerular Filt Rate > 60 mL/min (>60); Glucose 103 mg/dL (70-100); HEMOLYSIS < 15 (0-50); Potassium 4.8 mmol/L (3.4-5.1); Sodium 136 mmol/L (137-145)
== END ==
PROVIDERS: PCP Psychiatry & Neurology Neurology; Referring Provider Psychiatry & Neurology Neurology; Visit Provider Psychiatry & Neurology Neurology
DX: Z51.81 Encounter for therapeutic drug level monitoring (principal)
CPT/HCPCS: 36415; 80053; 85025

== ENCOUNTER 2022-10-13 14:40 | Outpatient (CLI) | payer OTHER, SELFPAY ==
[2022-10-13] VITALS (9 sets, daily range): BP systolic 106–148; BP diastolic 53–98; PULSE 48–74; RESP 13–21; TEMP 36.8; O2SAT 98–100
--- NOTE | 2022-10-13 14:43 | DI.RAD.S_ITS ---
PROCEDURE: PAIN L/S FACET INJ/BLK 1ST FAZAL COMPARISON: [facility], [facility], MRI L-SPINE W/O CONTRAST, 08/21/2022, 16:06. INDICATIONS: SPONDYLOSIS FINDINGS: Fluoroscopic spot filming was performed to verify placement of spinal needles on both sides at the L4, L5, and S1 levels, as labeled on the films. Appropriate location of the needle tips was confirmed by injection of iodinated contrast. IMPRESSION: Intraprocedural examination demonstrating appropriate positions of the needles. Dictated by: Kip De La Cruz M.D. on 10/13/2022 at 16:09 Approved by: Kip De La Cruz M.D. on 10/13/2022 at 16:10
[2022-10-13] MEDS: MIDAZOLAM 2 MG/2 ML VIAL 4 MG IV (15:32)
[2022-10-13] MEDS: LIDOCAINE 1% 20 ML 5 ML INJ (15:40)
[2022-10-13] MEDS: BUPIVACAINE 0.5% (PF) 10 ML VIAL 5 ML INJ (15:40)
[2022-10-13] MEDS: IOPAMIDOL 15 ML VIAL 3 ML INJ (15:40)
--- NOTE | 2022-10-13 15:54 | P.PCN_ITS ---
Date/Time/Diagnoses Date of procedure: 10/13/22 Time of procedure: 15:54 Pre-procedure diagnosis: 1. FACET ARTHROPATHY Post-procedure diagnosis: same Procedure Notes Procedure: 1. BILATERAL- L4, L5 and S1 DIAGNOSTIC MB BLOCKS with LA Anesthetic Indications: Sally is referred by PREMA Lindsay for treatment of Bilateral Axial LBP. Physician: Quinton Levine Total Fluoroscopy time (seconds): 12 Total sedation minutes: 21 Complications: none Procedure in detail & Post-procedure care: DESCRIPTION OF PROCEDURE Fluoroscopically guided, contrast-controlled bilateral L4, L5 and S1 medial branch blocks with 0.5cc of 0.5% Marcaine. Following review of allergy and review of potential side effects and complications, including, but not necessarily limited to, infection, allergic reaction, local tissue breakdown, nerve injury, paralysis, stroke and possible , the patient indicated that the patient understood and agreed to proceed. An informed consent document was signed by the patient, witnessed by a nurse, and placed in the patient's chart. After review of previous anaesthesic history and IV conscious sedation the patient was deemed safe to proceed with today's procedure with IV conscious sedation as ASA class II designation. Safety time-out was performed to confirm patient ID, procedure to be performed and site of procedure. IV sedation was accomplished with a combination of 4mg of Versed was administered by the RN after DO order, titrated to patient comfort during the course of the procedure while the patient remained responsive to all verbal commands In the prone position, following sterile prep and drape of the lumbar region, the right L4, L5 and S1 anatomical location of the medial branch of the dorsal ramus was identified fluoroscopically. Subsequently an anesthetic skin wheal using 1% lidocaine solution was initiated at each of the anatomical spots. Subsequently then a 22-gauge 3.5-inch spinal needle was atraumatically introduced and advanced under fluoroscopic guidance at each of the corresponding sites at the right L4, L5 and S1 MB. After negative aspiration, 0.2cc of Isovue 200 was injected, confirming placement without vascular or intrathecal uptake. Subsequently then 0.5cc of 0.5% Marcaine solution was injected at each of the corresponding sites at the right L4, L5 and S1 medial branch locations. The identical procedure was replicated on the left. The patient tolerated the procedure well without signs or symptoms of complications prior to transfer to the recovery area continued monitoring without incident. Post-procedure, the patient was monitored initiating provocative activities to measure the amount of relief from block of the facetogenic pain. The patient reported a VAS of 7 prior to the procedure and a post-procedure VAS of 1. It has been a pleasure to assist in the diagnostic and therapeutic care of your patient. POST OP INSTRUCTIONS The patient was provided with a Pain Log to complete over the next several hours and subsequent days prior to the patient's follow up with the ordering physician. If the patient has exploration manager relief to the solution applied, then they may be a candidate for medial branch rhizotomy. The patient is aware, was provided, once again, with a Pain Log and will follow up with the referring physician for review and clinical correlation
== END 2022-10-13 16:05 | disposition home or self-care (01) ==
PROVIDERS: PCP Registered Nurse Diabetes Educator; Referring Provider Physical Medicine & Rehabilitation; Visit Provider Physical Medicine & Rehabilitation
DX: M47.816 Spondylosis without myelopathy or radiculopathy, lumbar region (principal); M47.817 Spondylosis without myelopathy or radiculopathy, lumbosacral region
CPT/HCPCS: 64493; 64494; 99152; J2250

== ENCOUNTER → 2022-10-21 08:33 | Outpatient (CLI) | payer OTHER, SELFPAY ==
[2022-10-21 10:13] LABS: Hematocrit 38.9 % (36-46); Hemoglobin 13.1 g/dL (12.0-16.0); Mean Corpuscular HGB Conc 33.6 % (30-36); Mean Corpuscular Hemoglobin 30.8 PG (26-34); Mean Corpuscular Volume 91.8 fL (80-100); Platelet Count 235 X10^3/uL (150-400); Red Blood Cell Count 4.24 X10^6/uL (4.0-5.2); Red Cell Distribution Width 13.3 % (11.6-14.8); White Blood Cell Count 7.7 X10^3/uL (4.5-11.0)
[2022-10-21 10:35] LABS: Alanine Aminotransferase 43 IU/L (<35); Albumin 3.9 g/dL (3.5-5.0); Albumin Globulin Ratio 1.3 (1.0-2.8); Alkaline Phosphatase 79 U/L (38-126); Aspartate Aminotransferase 26 IU/L (14-36); BUN Creatinine Ratio 18.6 (6-22); Bilirubin Total 0.4 mg/dL (0.2-1.3); Blood Urea Nitrogen 11 mg/dL (7-17); Calcium 8.8 mg/dL (8.4-10.2); Carbon Dioxide 25 mmol/L (22-32); Chloride 104 mmol/L (98-107); Cholesterol 169 mg/dL (140-199); Estimated Glomerular Filt Rate > 60 mL/min (>60); Glucose 77 mg/dL (70-100); HDL Cholesterol 35 mg/dL (40-60); HEMOLYSIS < 15 (0-50); LDL Cholesterol Calculated 120 mg/dL (<100); Potassium 4.5 mmol/L (3.4-5.1); Sodium 137 mmol/L (137-145); Total Protein 6.9 g/dL (6.3-8.2); Triglycerides 71 mg/dL (35-150)
[2022-10-21 11:09] LABS: TSH w/ Reflex to FT4 1.68 uIU/mL (0.47-4.68)
== END ==
PROVIDERS: PCP Registered Nurse Diabetes Educator; Referring Provider Registered Nurse Diabetes Educator; Visit Provider Registered Nurse Diabetes Educator
DX: E78.5 Hyperlipidemia, unspecified (principal); I10 Essential (primary) hypertension
CPT/HCPCS: 36415; 80053; 80061; 84443; 85027

== ENCOUNTER → 2023-01-25 09:51 | Outpatient (CLI) | payer OTHER, SELFPAY ==
[2023-01-25 11:39] LABS: Alanine Aminotransferase 43 IU/L (<35); Albumin Globulin Ratio 1.3 (1.0-2.8); Alkaline Phosphatase 77 U/L (38-126); Aspartate Aminotransferase 19 IU/L (14-36); Bilirubin Total 0.4 mg/dL (0.2-1.3); Bilirubin Unconjugated 0.3 mg/dL (0.0-1.1); HEMOLYSIS < 15 (0-50)
[2023-01-25 11:44] LABS: HEMOLYSIS < 15 (0-50); Iron 112 ug/dL (37-170)
[2023-01-25 11:55] LABS: Percent Iron Saturation 39 % (15-50); Total Iron Binding Capacity 289 ug/dL (265-497); Transferrin 192 mg/dL (206-381)
[2023-01-25 12:10] LABS: Ferritin 40 ng/mL (6-137)
== END ==
PROVIDERS: PCP Registered Nurse Diabetes Educator; Referring Provider Registered Nurse Diabetes Educator; Visit Provider Registered Nurse Diabetes Educator
DX: L65.0 Telogen effluvium (principal); R74.8 Abnormal levels of other serum enzymes
CPT/HCPCS: 36415; 80076; 82728; 83540; 83550

== ENCOUNTER 2023-02-11 15:01 | Outpatient (CLI) | payer OTHER, SELFPAY ==
[2023-02-11] VITALS (8 sets, daily range): BP systolic 127–138; BP diastolic 60–81; PULSE 52–73; RESP 14–22; TEMP 37; O2SAT 96–100
--- NOTE | 2023-02-11 15:03 | DI.RAD.S_ITS ---
PROCEDURE: PAIN L/S FACET INJ/BLK 1ST FAZAL INDICATIONS: SPONDYLOSIS COMPARISON: [facility], , PAIN L/S FACET INJ/BLK 1ST AFZAL, 10/13/2022, 15:34. FINDINGS: Fluoroscopic spot filming was performed to verify placement of spinal needles at the right and left L4, L5, S1 level(s), as labeled on the films. Appropriate location(s) of the needle tip(s) was confirmed by injection of iodinated contrast. IMPRESSION: Intraoperative guidance provided. Dictated by: Vinnie Worthy M.D. on 02/11/2023 at 21:08 Approved by: Vinnie Worthy M.D. on 02/11/2023 at 21:08
[2023-02-11] MEDS: fentaNYL 100 MCG/2 ML INJ 50 MCG IV (15:55)
[2023-02-11] MEDS: MIDAZOLAM 2 MG/2 ML VIAL IV (15:55)
[2023-02-11] MEDS: iopamidoL 15 ML VIAL 3 ML INJ (15:57)
[2023-02-11] MEDS: LIDOCAINE 2% INJ MDV 20ML 5 ML INJ (15:57)
[2023-02-11] MEDS: LIDOCAINE 1% 20 ML 5 ML INJ (15:57)
--- NOTE | 2023-02-11 16:11 | P.PCN_ITS ---
Date/Time/Diagnoses Date of procedure: 02/11/23 Time of procedure: 16:11 Pre-procedure diagnosis: 1. FACET ARTHROPATHY Post-procedure diagnosis: same Procedure Notes Procedure: 1. BILATERAL- L4, L5 and S1 DIAGNOSTIC MB BLOCKS with SA Anesthetic Indications: Sally is referred by PREMA Lindsay for treatment of Bilateral Axial LBP. Physician: Quinton Levine Total Fluoroscopy time (seconds): 15 Total sedation minutes: 12 Complications: none Procedure in detail & Post-procedure care: DESCRIPTION OF PROCEDURE Fluoroscopically guided, contrast-controlled bilateral L4, L5 and S1 medial branch blocks with 0.5cc of 2% Lidocaine. Following review of allergy and review of potential side effects and complications, including, but not necessarily limited to, infection, allergic reaction, local tissue breakdown, nerve injury, paralysis, stroke and possible , the patient indicated that the patient understood and agreed to proceed. An informed consent document was signed by the patient, witnessed by a nurse, and placed in the patient's chart. After review of previous anaesthesic history and IV conscious sedation the patient was deemed safe to proceed with today's procedure with IV conscious sedation as ASA class II designation. Safety time-out was performed to confirm patient ID, procedure to be performed and site of procedure. IV sedation was accomplished with a combination of 2mg of Versed and 50mcg of Fentanyl was administered by the RN after DO order, titrated to patient comfort during the course of the procedure while the patient remained responsive to all verbal commands In the prone position, following sterile prep and drape of the lumbar region, the right L4, L5 and S1 anatomical location of the medial branch of the dorsal ramus was identified fluoroscopically. Subsequently an anesthetic skin wheal using 1% lidocaine solution was initiated at each of the anatomical spots. Subsequently then a 22-gauge 3.5-inch spinal needle was atraumatically introduced and advanced under fluoroscopic guidance at each of the corresponding sites at the right L4, L5 and S1 MB. After negative aspiration, 0.2cc of Isovue 200 was injected, confirming placement without vascular or intrathecal uptake. Subsequently then 0.5cc of 2% Lidocaine solution was injected at each of the corresponding sites at the right L4, L5 and S1 medial branch locations. The identical procedure was replicated on the left. The patient tolerated the procedure well without signs or symptoms of complications prior to transfer to the recovery area continued monitoring without incident. Post-procedure, the patient was monitored initiating provocative activities to measure the amount of relief from block of the facetogenic pain. The patient reported a VAS of 7 prior to the procedure and a post-procedure VAS of 1. It has been a pleasure to assist in the diagnostic and therapeutic care of your patient. POST OP INSTRUCTIONS The patient was provided with a Pain Log to complete over the next several hours and subsequent days prior to the patient's follow up with the ordering physician. If the patient has speech language pathologist travel relief to the solution applied, then they may be a candidate for medial branch rhizotomy. The patient is aware, was provided, once again, with a Pain Log and will follow up with the referring physician for review and clinical correlation
== END 2023-02-11 15:27 | disposition home or self-care (01) ==
PROVIDERS: PCP Registered Nurse Diabetes Educator; Referring Provider Physical Medicine & Rehabilitation; Visit Provider Physical Medicine & Rehabilitation
DX: M47.816 Spondylosis without myelopathy or radiculopathy, lumbar region (principal)
CPT/HCPCS: 64493; 64494; 99152; J2250; J3010

== ENCOUNTER 2023-03-11 10:56 | Outpatient (CLI) | payer OTHER, SELFPAY ==
[2023-03-11] VITALS (13 sets, daily range): BP systolic 112–134; BP diastolic 58–71; PULSE 50–66; RESP 11–22; TEMP 36.3; O2SAT 96–100
--- NOTE | 2023-03-11 | DI.RAD.S_ITS ---
PROCEDURE: PAIN L/S MED/LAT N RFA BILAT INDICATIONS: Arthropathy of lumbar facet joint COMPARISON: None. FINDINGS: Fluoroscopic spot filming was performed to verify placement of spinal needles at the bilateral L4, L5 and S1 medial branch level(s), as labeled on the films. Appropriate location(s) of the needle tip(s) was confirmed by injection of iodinated contrast. IMPRESSION: Access needles placed for bilateral L4, L5 and S1 medial branch blocks. Dictated by: Elida Harden MD, PhD on 03/11/2023 at 13:35 Approved by: Elida Harden MD, PhD on 03/11/2023 at 13:36
[2023-03-11] MEDS: fentaNYL 100 MCG/2 ML INJ 50 MCG IV ×2 (11:45→12:02)
[2023-03-11] MEDS: MIDAZOLAM 2 MG/2 ML VIAL 1 MG IV ×4 (11:45→12:12)
[2023-03-11] MEDS: LIDOCAINE 1% 20 ML 5 ML INJ (11:49)
[2023-03-11] MEDS: BUPIVACAINE 0.5% (PF) 10 ML VIAL 5 ML INJ (11:49)
--- NOTE | 2023-03-11 12:46 | P.PCN_ITS ---
Date/Time/Diagnoses Date of procedure: 03/11/23 Time of procedure: 12:46 Pre-procedure diagnosis: 1. RECALCITRANT FACET ARTHROPATHY Post-procedure diagnosis: same Procedure Notes Procedure: 1. BILATERAL L4 AND L5 MEDIAL BRANCH RADIOFREQUENCY NEUROTOMY AND S1 DORSAL RAMUS BRANCH RADIOFREQUENCY NEUROTOMY Indications: Sally is referred by PREMA Lindsay for treatment of facet arthropathy. Physician: Quinton Levine Total Fluoroscopy time (seconds): 28 Total sedation minutes: 43 Complications: none Procedure in detail & Post-procedure care: DESCRIPTION OF PROCEDURE Bilateral L4 and L5 medial branch radiofrequency neurotomy and bilateral S1 dorsal ramus radiofrequency neurotomy under fluoroscopy with conscious sedation. The patient is well known to this clinic having undergone previous facet injections with good but temporary relief. The patient has experienced appropriate, concordant relief with previous facet and median branch blocks but the patient's pain has been recalcitrant to further conservative measures. Therefore, based upon the patient's relief and persistent symptoms, the patient is considered an appropriate candidate for facet rhizotomy. All of the patient's questions regarding the risks versus benefits of the procedure, including, but not limited to, bleeding, infection, temporary as well as lasting nerve injury, paralysis, stroke, and , as well treatment alternatives were answered to satisfaction. After obtaining informed consent, denial of pertinent drug allergies, as well as being made aware of the potential risks of bleeding, infection, spinal cord trauma, paralysis, temporary and permanent nerve damage, seizure, stroke, and possible , the patient was brought to the fluoroscopy suite and positioned prone on the fluoroscopy table. The lumbar region was prepped in usual sterile fashion and covered with a fenestrated drape in the usual sterile fashion. Appropriate monitors applied including pulse oximeter, pulse, and blood pressure for regular monitoring throughout the procedure. After review of previous anaesthesic history and IV conscious sedation the patient was deemed safe to proceed with today's procedure with IV conscious sedation as ASA class II designation. Safety time-out was performed to confirm patient ID, procedure to be performed and site of procedure. IV sedation was accomplished with a combination of 4mg of Versed and 100mcg of Fentanyl administered by the RN after DO order, titrated to patient comfort during the course of the procedure while the patient remained responsive to all verbal commands. After local infiltration using 1% lidocaine, under fluoroscopic guidance, a 15- cm RF insulated needle with a 10-mm active tip was positioned parallel to the junction of the right sacral ala and the superior articulating process where the S1 dorsal ramus resides. Needle placement was confirmed with motor stimulation of .5v on the right which produced local stimulation without radicular component. The stimulation was then increased to 2v with, once again, only local multifidus stimulation without radicular component. The needle was then removed and the identical procedure was performed along the length of the right L5 medial branch with motor stimulation at .7v on the right. The identical procedure was once again performed along the length of the right L4 medial branch with motor stimulation of .5v on the right. The medial branches were then anesthetised with 0.5% Marcaine. This was then followed by two discreet lesions performed at 80 degrees Celsius for 90 seconds each. The identical procedure was repeated on the left. The patient tolerated the procedure well without signs or symptoms of complications prior to transfer to the recovery area continued monitoring without incident. The patient was then transferred to the recovery area where they were observed for an appropriate period of time after the injection. The patient reported a VAS score of 9 prior to the procedure and a post-procedure VAS of 0. POST OP INSTRUCTIONS The patient was provided a Pain Log to continue to record the patient's response to the target-specific procedure prior to the patient's follow-up visit with the referring physician. Additionally, specific post-injection care instructions and a contact number to our office were provided if concerns arise regarding possible complications associated with the procedure are suspected.
== END 2023-03-11 12:46 | disposition home or self-care (01) ==
PROVIDERS: PCP Registered Nurse Diabetes Educator; Referring Provider Physical Medicine & Rehabilitation; Visit Provider Physical Medicine & Rehabilitation
DX: M47.816 Spondylosis without myelopathy or radiculopathy, lumbar region (principal); M47.817 Spondylosis without myelopathy or radiculopathy, lumbosacral region
CPT/HCPCS: 64635; 64636; 99152; 99153; J2250; J3010

== ENCOUNTER → 2023-08-23 10:17 | Outpatient (CLI) | payer OTHER, SELFPAY ==
--- NOTE | 2023-08-23 10:18 | DI.MG.S_ITS ---
BILATERAL DIGITAL DIAGNOSTIC MAMMOGRAM 3D/2D: 08/23/2023 CLINICAL: Left breast mass. Comparison is made to exams dated: 10/30/2021 mammogram, 02/08/2019 mammogram, 02/21/2019 mammogram, and 01/21/2019 mammogram - [facility]. There are scattered areas of fibroglandular density in both breasts (category b / 25%-50% glandular tissue). No significant masses, calcifications, or other findings are seen in either breast. IMPRESSION: INCOMPLETE: NEEDS ADDITIONAL IMAGING EVALUATION There is no abnormality seen in the left breast to correspond with the area of clinical concern and palpable abnormality indicated by triangular marker in the posterior depth in the medial aspect near the 9o'clock position, however, ultrasound is recommended for further evaluation and is scheduled to immediately follow this examination. Based on the Tyrer Cuzick model (a risk assessment model) the patient's lifetime risk is 9.5% and her 10 year risk is 1.6%. According to the ACR, ACS, and NCCN guidelines, an annual breast MRI exam along with mammogram is recommended if the patient's lifetime risk is 20% or greater. This exam was interpreted at Station ID: [id number]. NOTE: For mammograms, a report in lay terms will be sent to the patient. Approximately 15% of breast malignancies will not be visualized mammographically. In the management of a palpable breast mass, a negative mammogram must not discourage biopsy of a clinically suspicious lesion. Electronically Signed By: Stephan Mauricio M.D. aty/:08/23/2023 11:19:11 ACR BI-RADS Category 0: Incomplete [id number]
--- NOTE | 2023-08-23 10:18 | DI.US.S_ITS ---
LIMITED ULTRASOUND OF LEFT BREAST: 08/23/2023 CLINICAL: Left breast mass. No prior exams were available for comparison. Real-time ultrasound of the left breast 8-10 o'clock region was performed. No significant abnormalities were seen sonographically in the left breast. IMPRESSION: NEGATIVE There is no sonographic evidence of malignancy. There is no abnormality seen in the left breast to correspond with the area of clinical concern and palpable abnormality indicated by triangular marker in the posterior depth in the medial aspect, however, recommend clinical follow up for persistent or worsening symptoms, or development of any clinically suspicious findings. Recommend screening mammogram in one year. Findings and recommendations were conveyed to the patient during today's evaluation. This exam was interpreted at Station ID: [id number]. Electronically Signed By: Stephan Mauricio M.D. at/:08/23/2023 11:54:20 letter sent: Clinical Evaluation Ultrasound BI-RADS: 1 Negative
== END ==
PROVIDERS: PCP Registered Nurse Diabetes Educator; Referring Provider Registered Nurse Diabetes Educator; Visit Provider Registered Nurse Diabetes Educator
DX: R92.2 Inconclusive mammogram (principal); N63.20 Unspecified lump in the left breast, unspecified quadrant; R92.323 Mammographic fibroglandular density, bilateral breasts
CPT/HCPCS: 76642; 77066; G0279

== ENCOUNTER → 2023-10-06 08:18 | Outpatient (CLI) | payer OTHER, SELFPAY ==
[2023-10-06 10:23] LABS: Hematocrit 35.2 % (36-46); Mean Corpuscular HGB Conc 34.1 % (30-36); Mean Corpuscular Hemoglobin 32.1 PG (26-34); Platelet Count 221 X10^3/uL (150-400); Red Blood Cell Count 3.74 X10^6/uL (4.0-5.2); Red Cell Distribution Width 13.8 % (11.6-14.8); White Blood Cell Count 5.1 X10^3/uL (4.5-11.0)
[2023-10-06 10:45] LABS: Alanine Aminotransferase 11 IU/L (<35); Albumin 3.6 g/dL (3.5-5.0); Albumin Globulin Ratio 1.6 (1.0-2.8); Alkaline Phosphatase 58 U/L (38-126); Aspartate Aminotransferase 16 IU/L (14-36); BUN Creatinine Ratio 17.5 (6-22); Bilirubin Total 0.5 mg/dL (0.2-1.3); Blood Urea Nitrogen 11 mg/dL (7-17); Calcium 8.5 mg/dL (8.4-10.2); Carbon Dioxide 27 mmol/L (22-32); Chloride 108 mmol/L (98-107); Cholesterol 149 mg/dL (140-199); Estimated Glomerular Filt Rate > 60 mL/min (>60); Globulin 2.2 g/dL (1.7-4.1); Glucose 85 mg/dL (70-100); HDL Cholesterol 57 mg/dL (40-60); HEMOLYSIS < 15 (0-50); LDL Cholesterol Calculated 80 mg/dL (<100); Potassium 4.4 mmol/L (3.4-5.1); Sodium 138 mmol/L (137-145); Total Protein 5.8 g/dL (6.3-8.2); Triglycerides 59 mg/dL (35-150)
[2023-10-06 11:16] LABS: TSH w/ Reflex to FT4 1.19 uIU/mL (0.47-4.68)
== END ==
PROVIDERS: PCP Registered Nurse Diabetes Educator; Referring Provider Registered Nurse Diabetes Educator; Visit Provider Registered Nurse Diabetes Educator
DX: E78.5 Hyperlipidemia, unspecified (principal); I10 Essential (primary) hypertension; I49.3 Ventricular premature depolarization
CPT/HCPCS: 36415; 80053; 80061; 84443; 85027

== ENCOUNTER → 2024-02-11 17:15 | Outpatient (CLI) | payer SELFPAY ==
[2024-02-11 19:18] LABS: Urine N gonorrhoeae NOT DETECTED
[2024-02-11 19:28] LABS: Urine Chlamydia NOT DETECTED
[2024-02-14 16:57] LABS: HIV 1 & 2 Ab/Ag 4th Gen Combo NEGATIVE (NEGATIVE); Hep C Virus Ab w/Reflex Quant NEGATIVE s/c (NEGATIVE); Hepatitis B Surface Antigen NEGATIVE s/c (NEGATIVE)
== END ==
PROVIDERS: PCP Registered Nurse Diabetes Educator; Referring Provider Registered Nurse Diabetes Educator; Visit Provider Registered Nurse Diabetes Educator
DX: Z72.51 High risk heterosexual behavior (principal)
CPT/HCPCS: 36415; 86592; 86695; 86696; 86803; 87340; 87389; 87491; 87591

== ENCOUNTER → 2024-10-30 10:35 | Outpatient (CLI) | payer OTHER, SELFPAY ==
[2024-10-30 11:17] LABS: Hematocrit 37.1 % (36-46); Hemoglobin 12.6 g/dL (12.0-16.0); Mean Corpuscular HGB Conc 33.9 % (30-36); Mean Corpuscular Hemoglobin 31.8 PG (26-34); Mean Corpuscular Volume 93.8 fL (80-100); Platelet Count 233 X10^3/uL (150-400)
[2024-10-30 11:40] LABS: HEMOLYSIS < 15 (0-50); Iron 121 ug/dL (37-170)
[2024-10-30 11:44] LABS: Alanine Aminotransferase 15 IU/L (<35); Albumin 3.8 g/dL (3.5-5.0); Albumin Globulin Ratio 1.4 (1.0-2.8); Alkaline Phosphatase 56 U/L (38-126); Blood Urea Nitrogen 11 mg/dL (7-17); Calcium 8.8 mg/dL (8.4-10.2); Carbon Dioxide 25 mmol/L (22-32); Chloride 108 mmol/L (98-107); Cholesterol 181 mg/dL (140-199); Estimated Glomerular Filt Rate > 60 mL/min (>60); Globulin 2.7 g/dL (1.7-4.1); Glucose 94 mg/dL (70-99); HDL Cholesterol 47 mg/dL (40-60); HEMOLYSIS < 15 (0-50); Potassium 4.8 mmol/L (3.4-5.1); Sodium 138 mmol/L (137-145); Total Protein 6.5 g/dL (6.3-8.2); Triglycerides 75 mg/dL (35-150)
[2024-10-30 11:52] LABS: Percent Iron Saturation 39 % (15-50); Total Iron Binding Capacity 311 ug/dL (265-497); Transferrin 252 mg/dL (206-381)
[2024-10-30 12:10] LABS: TSH w/ Reflex to FT4 1.02 uIU/mL (0.47-4.68)
[2024-10-30 12:16] LABS: Ferritin 30 ng/mL (6-137)
[2024-10-30 12:29] LABS: Vitamin B12 344 pg/mL (239-931)
== END ==
PROVIDERS: PCP Registered Nurse Diabetes Educator; Referring Provider Registered Nurse Diabetes Educator; Visit Provider Registered Nurse Diabetes Educator
DX: Z00.00 Encounter for general adult medical examination without abnormal findings (principal); L65.0 Telogen effluvium; L65.8 Other specified nonscarring hair loss; E78.5 Hyperlipidemia, unspecified; I10 Essential (primary) hypertension; D64.9 Anemia, unspecified
CPT/HCPCS: 36415; 80053; 80061; 82607; 82627; 82728; 83540; 83550; 84403; 84443; 85027